=== PATIENT | female | born 1985 | race Caucasian/White ===

== ENCOUNTER → 2017-12-28 | Outpatient (CLI) | payer OTHER | LOC: FIMAGING 14:52 | PROVIDERS: ATTEND Internal Medicine Hematology & Oncology | DX: Z12.31 Encounter for screening mammogram for malignant neoplasm of breast (principal); Z15.01 Genetic susceptibility to malignant neoplasm of breast; Z80.3 Family history of malignant neoplasm of breast ==

== ENCOUNTER → 2018-01-01 | Outpatient (CLI) | payer OTHER ==
[~2018-01-01] MED LIST: GADOBUTROL 10 ML VIAL IVP ONE
== END ==
LOC: FIMAGING 07:33
PROVIDERS: ATTEND Internal Medicine Hematology & Oncology
DX: Z12.39 Encounter for other screening for malignant neoplasm of breast (principal); Z80.3 Family history of malignant neoplasm of breast; N63.20 Unspecified lump in the left breast, unspecified quadrant; N64.89 Other specified disorders of breast
CPT/HCPCS: 0159T; 77059; A9585; C8908

== ENCOUNTER → 2018-01-18 | Outpatient (CLI) | payer OTHER | LOC: FIMAGING 10:11 | PROVIDERS: ATTEND Internal Medicine Hematology & Oncology | DX: R92.8 Other abnormal and inconclusive findings on diagnostic imaging of breast (principal); Z80.3 Family history of malignant neoplasm of breast ==

== ENCOUNTER → 2018-01-23 | Outpatient (CLI) | payer OTHER | LOC: FIMAGING 07:58 | PROVIDERS: ATTEND Obstetrics & Gynecology | DX: E22.1 Hyperprolactinemia (principal) | CPT/HCPCS: A9585 ==

== ENCOUNTER → 2018-07-23 | Outpatient (CLI) | payer BC | LOC: FIMAGING 10:06 | PROVIDERS: ATTEND Internal Medicine Hematology & Oncology | DX: Z15.01 Genetic susceptibility to malignant neoplasm of breast (principal); Z13.71 Encounter for nonprocreative screening for genetic disease carrier status; Z80.3 Family history of malignant neoplasm of breast; Z12.73 Encounter for screening for malignant neoplasm of ovary | CPT/HCPCS: A9585; C8908 ==